=== PATIENT | female | born 1955 | race Caucasian/White ===

== ENCOUNTER → 2020-03-19 10:23 | Outpatient (CLI) | payer OTHER, SELFPAY ==
--- NOTE | ~2020-03-19 | MM_ITS ---
EXAMINATION: MM screening herminio BI w sheri HISTORY: Screening TECHNIQUE: Craniocaudal and mediolateral oblique 3-D tomosynthesis images were obtained and synthetic 2-D images were generated. CAD analysis was submitted and interpreted. COMPARISON: Comparison to multiple prior studies sequentially, with oldest reviewed study dated 09/26. BREAST PARENCHYMAL COMPOSITION: There are scattered areas of fibroglandular density. FINDINGS: There is no evidence of suspicious mass, calcification, or architectural distortion to sugg est malignancy in either breast. There has been no suspicious interval change. IMPRESSION: 1. No mammographic evidence of malignancy. 2. Recommend routine screening mammography in one year. BI-RADS Category 1: Negative Reviewed, dictated and finalized at location A. 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
== END ==
PROVIDERS: PCP Family Medicine; Visit Provider Family Medicine
DX: Z12.31 Encounter for screening mammogram for malignant neoplasm of breast (principal)
CPT/HCPCS: 77063; 77067

== ENCOUNTER 2022-07-28 18:12 | Observation (INO) | payer OTHER, SELFPAY ==
--- NOTE | ~2022-07-28 | XR_ITS ---
XR shoulder RT min 2V 07/28/2022 22:13 Indication: Right shoulder pain after fall Procedure: 4 views right shoulder Comparison: No prior studies for comparison. Findings: There is a curvilinear avulsion fracture of the greater tuberosity of the humerus. Mild ost eoarthritis of the acromioclavicular joint. Osteopenia. Impression: 1: Acute avulsion fracture greater tuberosity of the humerus. Reviewed, dictated and finalized at location A. Impression: 1: Acute avulsion fracture greater tuberosity of the humerus.
--- NOTE | ~2022-07-28 | CT_ITS ---
EXAMINATION: CT brain wo con DATE: 07/28/2022 21:04 INDICATION: Head injury. TECHNIQUE: Computed tomography (CT) of the head was performed without intravenous contrast. The dose- length product was 605.33 mGy-cm. Automated exposure control and iterative reconstruction technique w ere employed. COMPARISON: None FINDINGS: Brain parenchymal volume is normal for age. There is right periorbital soft tissue swelling . There are scattered mild periventricular and subcortical white matter changes, most likely related to small vessel ischemic disease (microangiopathy). No ventriculomegaly or midline shift. Basilar cis terns are patent. There is intracranial atherosclerosis. No acute infarction, hemorrhage, mass or mas s effect. There is mucosal thickening of the maxillary sinuses. Mastoids are pneumatized. No depresse d skull fractures. IMPRESSION: 1. No acute intracranial abnormality. Reviewed, dictated and finalized at location A.
--- NOTE | ~2022-07-28 | CT_ITS ---
EXAMINATION: CT facial & cervical spine wo DATE: 07/28/2022 21:30 INDICATION: Status post fall. Facial and neck pain TECHNIQUE: Computed tomography (CT) of the maxillofacial region and cervical spine was performed with out intravenous contrast. The dose-length product was 245.69 mGy-cm. Automated exposure control and i terative reconstruction technique were employed. COMPARISON: No prior studies for comparison. FINDINGS: MAXILLOFACIAL CT: No acute maxillofacial fracture. There are symmetric degenerative changes of the temporomandibular nagi ints. There is mild right periorbital soft tissue swelling. No orbital blowout fracture. Mild mucosal thickening of the maxillary sinuses. CERVICAL SPINE CT: There is no disc narrowing at C5-6 and C6-7. There is degenerative anterolisthesis at C4-5 and C7-T1. Craniovertebral junction is normal. No evidence for perched facet. No significant paraspinal soft ti ssue abnormality. There is moderate multilevel uncinate and facet hypertrophy. IMPRESSION: 1. No acute abnormality of the facial bones or cervical spine. Reviewed, dictated and finalized at location A.
[2022-07-28 18:30] VITALS: BP 186/89; PULSE 74; RESP 16; TEMP 36.4
--- NOTE | 2022-07-28 18:42 | ECG_ITS ---
Measurements Intervals [place] Rate: 74 P: -12 MN: 138 QRS: 15 QRSD: 89 T: 42 QT: 389 QTc: 434 Interpretive Statements SINUS RHYTHM INCOMPLETE RIGHT BUNDLE BRANCH BLOCK BORDERLINE ECG NO PREVIOUS ECG AVAILABLE FOR COMPARISON Electronically Signed On 07-28-2022 21:22:54 CDT by Augustine Jay D.O.
[2022-07-28 19:02] LABS: Basophils Absolute Auto 0.1 K/mm3 (0.0-0.1); Basophils Percent Auto 0.8 % (0.2-1.2); Eosinophils Absolute Auto 0.1 K/mm3 (0-0.3); Eosinophils Percent Auto 1.1 % (0-4.4); Hematocrit 36.1 % (37.0-47.0); Hemoglobin 11.8 g/dL (12.0-15.0); Immature Granulocyte Absolute 0.07 K/mm3 (0.00-0.031); Immature Granulocyte Percent A 0.6 % (0-0.5); Lymphocytes Absolute Auto 1.08 K/mm3 (0.9-3.2); Lymphocytes Percent Auto 9.6 % (18.3-44.2); Mean Corpuscular HGB Conc 32.7 g/dl (32-36); Mean Corpuscular Hemoglobin 27.8 pg (26-34); Mean Corpuscular Volume 85.1 fl (80-100); Monocytes Absolute Auto 0.6 K/mm3 (0.1-0.6); Monocytes Percent Auto 5.4 % (2.6-8.5); Neutrophils Absolute Auto 9.3 K/mm3 (1.3-6.7); Neutrophils Percent Auto 82.5 % (45.5-73.1); Platelet Count Result 328 k/mm3 (150-375); Red Blood Count 4.24 M/mm3 (4.2-5.4); Red Cell Distribution Width 14.3 % (11.5-14.5); White Blood Count 11.3 K/mm3 (4.5-10.0)
[2022-07-28 19:12] LABS: Alanine Aminotransferase 21 U/L (6-35); Albumin Level 4.6 g/dL (3.5-5.1); Alkaline Phosphatase 100 U/L (38-126); Anion Gap 7 mmol/L (8-16); Aspartate Amino Transferase 31 U/L (14-36); Bilirubin,Total 0.4 mg/dL (0.2-1.3); Blood Urea Nitrogen 12 mg/dL (7-17); Calcium 8.9 mg/dL (8.4-10.2); Carbon Dioxide 27 mmol/L (22-30); Chloride 97 mmol/L (98-107); Estimated CRCL calculation 84 ml/min; Estimated Glomerular Filt Rate > 60; Glucose 146 mg/dL (65-110); Potassium 3.6 mmol/L (3.4-5.0); Sodium 131 mmol/L (137-145)
--- NOTE | 2022-07-28 21:25 | ED.GENADULT ---
HPI - General Adult General Chief complaint: Fall Stated complaint: fall Time Seen by Provider: 07/28/22 20:45 History of Present Illness HPI narrative: This is a 67-year-old female presenting to ED after syncopal event at home. The patient says that she went out to take out the garbage. She does not remember any of the events after that but came into the house with a black eye, swollen lip and right shoulder pain. At this time she is denying chest pain, difficulty breathing, lightheadedness, nausea vomiting, numbness tingling or weakness. patient is not on blood thinners. Related Data Home Medications Medication Instructions Recorded Confirmed cholecalciferol (vitamin D3) 50 50 mcg PO DAILY 08/19/19 12/17/20 mcg (2,000 unit) capsule aspirin-caffeine 500 mg-32.5 mg tablet PO 03/30/22 tablet (Marce [employer]) coenzyme Q10 75 mg capsule (Ultra 75 mg PO DAILY 03/30/22 CoQ10) ferrous sulfate 325 mg (65 mg 325 mg PO .every 3 days 03/30/22 iron) tablet vitamin B complex 1 cap PO DAILY 03/30/22 vitamin E (dl, acetate) 45 mg (100 45 mg PO DAILY 03/30/22 unit) capsule Allergies Allergy/AdvReac Type Severity Reaction Status Date / Time No Known Allergies Allergy Verified 03/30/22 10:18 [facility] Past Medical History Medical History Arthralgia of both knees Essential hypertension Mixed hyperlipidemia Osteopenia Vitamin D deficiency Family History Family History Other Acute myocardial infarction Family history of coronary artery disease Hypertension Social History Social History Smoking status: Never smoker Second hand tobacco smoke exposure: No Alcohol intake: never Substance use: never Substance use type: does not use Lack of Transportation: No Lack of Food: Never True Current Housing: I Have Housing Concerned About Future Housing: No Difficulty Paying Gas/Electric Bills: No Difficulty Paying for Meds: No Currently Unemployed: No Education: Trade/Vocational Certificate Difficulty w/ Childcare or Family Care: No Gender identity (if verbalized by the patient): Female Exam Narrative: APPEARANCE: No apparent distress. 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 head to toe trauma exam ir did not reveal any other injuries. NEURO: Alert. Cranial nerves 2-12 grossly intact. Sensation light touch, motor function cerebellar function intact for 4 extremities. Gait exam was normal. SKIN:: Warm, dry. Normal color PSYCHIATRIC: Normal affect Course Vital Signs Vital signs: Vital Signs Temperature 97.6 F 07/28/22 18:30 Pulse Rate 74 07/28/22 18:30 Respiratory Rate 16 07/28/22 18:30 Blood Pressure 186/89 H 07/28/22 18:30 Temperature 97.6 F 07/28/22 18:30 Pulse Rate 86 07/28/22 22:50 Respiratory Rate 16 07/28/22 18:30 Blood Pressure 155/73 H 07/28/22 22:50 Procedures Laceration Laceration 1: Date: 07/28/22 Site: face Side (If applicable): right Size (cm): 2 Description: linear Depth: simple, single layer Local Anesthetic: lidocaine 1% and with epi Amount of anesthesia used (mL): 3 Pre-repair: wound explored, irrigated, irrigated extensively and deep structures intact ====== Skin Level ====== Skin layer closed with: nylon Size (cm): 6-0 Number of sutures: 3 ====== Subcutaneous Layer ======
[2022-07-28] MEDS: ACETAMINOPHEN 500 MG TABLET 1000 MG PO (21:39)
[2022-07-28] MEDS: TETANUS,DIPHTHERIA,AC PERTUSSIS ADULT (0.5 ML) BOOSTRIX IM (21:41)
[2022-07-28 21:53] LABS: NT Pro B Type Natriuretic Pept 139 pg/mL (19.9-100); Troponin I < 0.012 ng/mL (0.000-0.034)
[2022-07-28 22:49] VITALS: BP 153/74; BP 157/75; PULSE 76; PULSE 88
[2022-07-28 22:50] VITALS: BP 155/73; PULSE 86
[2022-07-28] MEDS: LIDO 1%/EPINEPHRINE 1:100,000 20 ML VIAL 10 ML INFILTRATE (22:56)
[2022-07-29] VITALS (7 sets, daily range): BP systolic 139–166; BP diastolic 60–75; PULSE 64–84; RESP 14–18; TEMP 36.3–37.1; O2SAT 98–100; BMI 26.6
--- NOTE | 2022-07-29 01:06 | ADMGEN ---
This patient, Leona Oneil, was admitted to Medical Room 261-01. Patient/family oriented to hospital policies and general routines including ID bracelet, bed and alarms, visiting hours, pain management, procedures, bathroom and other care routines, personal items, smoking policy, room service/diet, and visiting hours. Information on how to activate the Rapid Response Team has been discussed. Patient/Family are encouraged to report perceived risks to care and to ask questions if they do not understand what they are told or what they should do.
[2022-07-29 03:59] LABS: Troponin I < 0.012 ng/mL (0.000-0.034)
--- NOTE | 2022-07-29 04:53 | PM.IMHP ---
H&P: HPI History of Present Illness Date/Time: 07/29/22 04:53 Chief Complaint: Fall Narrative: 67-year-old female with past medical history of osteopenia and essential hypertension no longer on antihypertensives who presented to the ER after having a fall. The patient reports that she was at her son's house and was taking the trash out. The last thing she remembers is lifting a lid on the trash can. The next thing she knew she was sitting at the kitchen table in her grandson was handing her paper towel to wipe the blood from her lip. She did not remember getting up off the ground or walking into the house. She evidently walked into the house under her own power but does not recall the event. She stated that the ground was wet and she could have slipped and fallen. She denies any known preceding symptoms that is getting given the fact that she cannot recall walking back into the house could be having some amnesia regarding the immediate proceeding and following events. She reports denies having any dizziness on standing prior to the event but since coming to the hospital she has been having some dizziness when she stands up. She relates this to to the fact that she is having pain in her shoulder and now has pain in her face and forehead. She denies any prior history of episodes of syncope, palpitations, chest pain or shortness of breath. She is up on her feet and walks a lot for work. She is usually relatively active. She was on antihypertensives until last year. They were discontinued because she was actually having relative hypotension is symptoms of fatigue. Sensor antihypertensives have been stopped she has not been having any more symptoms. The patient remembers all events since she arrived to the hospital. She denies any cough or cold symptoms. She does have some urinary frequency this evening but she thinks that this is due to her being awake all night when she usually isn't. She denies any dysuria, fevers or chills. She has not noticed any hematuria. The patient does report pain in her right shoulder since the fall that is 7/10 in intensity. It is worse with movement. She reports that the pain is aching in nature. She cannot get comfortable and has not been to sleep. She reports that she takes bear back in body after she has worked all day due to knee pain and hip and low back pain. She does not have a history of taking any narcotics. Review of Systems Review of Systems: 12 systems were reviewed with pertinent positives and negatives per HPI. Except as documented in the HPI, all other systems were reviewed and are negative. [facility] Past Medical History Medical History (Updated 07/29/22 @ 05:39 by Vanna Davis DO) Arthralgia of both knees Essential hypertension Mixed hyperlipidemia Osteopenia Vitamin D deficiency Surgical History Surgical History (Updated 07/29/22 @ 05:01 by Vanna Davis DO) History of 3 sections History of tonsillectomy and adenoidectomy Family History Family History (Updated 07/29/22 @ 05:34 by Vanna Davis DO) Father , Age 57 Acute myocardial infarction Sibling , Age 70 Pancreatic cancer Sibling , Age 70 Heart disease Sibling , Age 70 Autoimmune disorder Mother , Age 86 Heart disease Hypertension Hx of CABG Acute myocardial infarction, Onset Age: 65 Social History Social History (Updated 07/29/22 @ 05:36 by Vanna Davis DO) Social History: The patient reports that she briefly smoked when she was a teenager. She rarely drinks alcohol once or twice a year she may have a glass of wine. She has 3 children who are healthy adult. She has been for 47 years. She works at [employer]. She denies any illicit substance use. Code status: Full code Surrogate decision maker: Smoking status: Never smoker Second hand tobacco smoke exposure: No Alcohol intake: never Substa
[2022-07-29] MEDS: KETOROLAC 30 MG/ML VIAL (*BKC) IV PUSH (08:21)
[2022-07-29] MEDS: CHOLECALCIFEROL 1,000 UNITS TABLET 2000 UNITS PO (08:23)
--- NOTE | 2022-07-29 08:47 | PM.IMPN ---
Progress Note: A&P Assessment and Plan (1) Syncope: Qualifiers: Syncope type: unspecified Qualified Code(s): R55 - Syncope and collapse Code(s): R55 - Syncope and collapse Status: Acute (2) Facial laceration: Qualifiers: Encounter type: initial encounter Qualified Code(s): S01.81XA - Laceration without foreign body of other part of head, initial encounter Code(s): S01.81XA - Laceration without foreign body of other part of head, initial encounter Status: Acute (3) Fracture, humerus, greater tuberosity: Qualifiers: Encounter type: initial encounter Fracture alignment: nondisplaced Fracture type: closed Laterality: right Qualified Code(s): S42.254A - Nondisplaced fracture of greater tuberosity of right humerus, initial encounter for closed fracture Code(s): S42.253A - Displaced fracture of greater tuberosity of unspecified humerus, initial encounter for closed fracture Status: Acute (4) CHI (closed head injury): Qualifiers: Encounter type: initial encounter Qualified Code(s): S09.90XA - Unspecified injury of head, initial encounter Code(s): S09.90XA - Unspecified injury of head, initial encounter Status: Acute Plan It is not clear whether not the patient slipped and fell resulting in her head injury or if the patient had a syncopal event. The patient could of slipped and fell and cannot remember the events due to retrograde amnesia. Patient also could have had is presyncopal or syncopal symptoms being cannot recall due to the same affect. The patient has been admitted for observation in telemetry monitoring. The patient's orthostatic vital signs in the ER were negative. Initial cause of the patient's initial event his chemistry. The patient's cardiac enzymes are negative and she is not having any known cardiac symptoms. Will monitor for recurrence of symptoms. If patient has any evidence of cardiac arrhythmia on telemetry she benefit from an outpatient manager cardiac cath. Will monitor for further evidence of possible concussion and post concussive symptoms. Patient does have a avulsion fracture of her humerus. Orthopedic surgery has been consulted. The patient has been placed in a sling. Patient is reporting pain is a 7/10 in intensity and Toradol and Tylenol have been ordered Patient has been admitted as observation status. Subjective Date/time seen: 07/29/22 08:47 Objective Data Vital Signs Vital Signs: Vital Signs - 24 hr 07/28/22 18:30 07/28/22 22:49 07/28/22 22:49 Temperature 97.6 F Pulse Rate 74 76 88 Respiratory Rate 16 Blood Pressure 186/89 H 153/74 H 157/75 H Pulse Oximetry Oxygen Delivery 07/28/22 22:50 07/29/22 01:26 07/29/22 01:16 Temperature Pulse Rate 86 84 Respiratory Rate 17 Blood Pressure 155/73 H Pulse Oximetry 99 Oxygen Delivery Room Air 07/29/22 01:22 07/29/22 00:00 07/29/22 04:00 Temperature 97.6 F Pulse Rate 81 75 73 Respiratory Rate 18 Blood Pressure 166/75 H Pulse Oximetry 100 Oxygen Delivery 07/29/22 04:43 Temperature 97.4 F L Pulse Rate 64 Respiratory Rate 17 Blood Pressure 139/60 Pulse Oximetry 98 Oxygen Delivery Intake/Output Intake/Output: Intake & Output 07/26/22 07/27/22 07/28/22 07/29/22 23:59 23:59 23:59 23:59 Intake Total 540 Balance 540 Meds/Results Medications: Active Medications Generic Name Dose Route Start Last Admin Trade Name Freq PRN Reason Stop Dose Admin Acetaminophen 650 mg 07/29/22 04:48 Acetaminophen 325 Mg Tablet PO Q4H PRN Mild Pain (1-5) Ketorolac Tromethamine 30 mg 07/29/22 04:48 07/29/22 08:21 Ketorolac 30 Mg/Ml Vial (*Bkc) IV PUSH 30 mg Q6H PRN Administration Pain Rated 6-10 Vitamin D 2,000 units 07/29/22 09:00 07/29/22 08:23 Cholecalciferol 1,000 Units Tablet PO 2,000 units DAILY SANDY Administration Radiology Results:
--- NOTE | 2022-07-29 09:37 | PM.CNOR ---
Assessment and Plan Assessment and plan (1) Fracture, humerus, greater tuberosity: Qualifiers: Encounter type: initial encounter Fracture alignment: nondisplaced Fracture type: closed Laterality: right Qualified Code(s): S42.254A - Nondisplaced fracture of greater tuberosity of right humerus, initial encounter for closed fracture Code(s): S42.253A - Displaced fracture of greater tuberosity of unspecified humerus, initial encounter for closed fracture Status: Acute Assessment and Plan: Radiographs the right shoulder reveal an avulsion fracture of the greater tuberosity of the humerus. The fracture type and injury as well as radiographs discussed with the patient and family. Operative and nonoperative treatment options reviewed. Recommended initiating non operative treatment at this time. Risk of nonunion, malunion or late displacement discussed. Stiffness, pain and possible dysfunction of the joint discussed. Fracture precautions and activity restrictions reviewed. The patient verbalizes understanding.Patient be fit with a sling. Begin PT and OT. Gentle [id number] exercises. Pain control. Ice. Nonweightbearing right upper extremity. Patient can follow-up in the outpatient orthopedic clinic in 6 weeks for re-evaluation. (2) Syncope: Qualifiers: Syncope type: unspecified Qualified Code(s): R55 - Syncope and collapse Code(s): R55 - Syncope and collapse Status: Acute (3) Facial laceration: Qualifiers: Encounter type: initial encounter Qualified Code(s): S01.81XA - Laceration without foreign body of other part of head, initial encounter Code(s): S01.81XA - Laceration without foreign body of other part of head, initial encounter Status: Acute (4) CHI (closed head injury): Qualifiers: Encounter type: initial encounter Qualified Code(s): S09.90XA - Unspecified injury of head, initial encounter Code(s): S09.90XA - Unspecified injury of head, initial encounter Status: Acute Plan Reviewed history, exam, radiographs with attending physician and consult did surgeon, Dr. Diamond. Agrees with current plan as indicated above. No further recommendations at this time. History of Present Illness HPI Consult date: 07/29/22 Chief complaint: syncope Narrative: 67-year-old female admitted after a fall outside while at her son's house. Patient does not remember the extent of the fall or the circumstances surrounding it. She does have right shoulder pain after her fall. Radiographs in the emergency room of the right shoulder reveal an avulsion fracture of the greater tuberosity of the humerus. Orthopedic consult requested by ED physician. Review of Systems Constitutional: Constitutional: Reports no additional constitutional complaints, Denies chills, Denies fatigue, Denies fever(s), Denies headache(s) and Denies weakness ENT: Reports Normal hearing present and Denies headache(s) Respiratory: Respiratory: Denies cough, Denies dyspnea and Denies wheezing Gastrointestinal: Gastrointestinal: Denies constipation, Denies diarrhea, Denies nausea and Denies vomiting Genitourinary: Genitourinary: Denies hematuria, Denies dysuria and Denies urinary urgency Musculoskeletal: Musculoskeletal: Reports as per HPI, Denies numbness and Denies tingling Integumentary/Breasts: Skin/Breast: Reports as per HPI Neurologic: Reports as per HPI, Reports Normal hearing present, Denies headache(s), Denies numbness, Denies tingling and Denies weakness Psychiatric: Psychiatric: Reports no additional psychiatric complaints Endocrine: Endocrine: Reports no additional endocrine complaints and Denies fatigue Hematologic/Lymphatic: Hematologic/Lymphatic: Reports no additional hematologic/lymphatic complaints Allergic/Immunologic: Allergic/Immunologic: Reports no additional allergic/immunologic complaints and Denies wheezing PMFSH Past Medical History Medi
--- NOTE | 2022-07-29 14:31 | PM.DS ---
DS: Admitting Diagnosis Discharge Date 07/29/22 Admitting Diagnosis fall with loss of consciousness. DS: Discharge Diagnosis Discharge Diagnosis (1) Syncope: Qualifiers: Syncope type: unspecified Qualified Code(s): R55 - Syncope and collapse Code(s): R55 - Syncope and collapse Status: Acute (2) Facial laceration: Qualifiers: Encounter type: initial encounter Qualified Code(s): S01.81XA - Laceration without foreign body of other part of head, initial encounter Code(s): S01.81XA - Laceration without foreign body of other part of head, initial encounter Status: Acute (3) Fracture, humerus, greater tuberosity: Qualifiers: Encounter type: initial encounter Fracture alignment: nondisplaced Fracture type: closed Laterality: right Qualified Code(s): S42.254A - Nondisplaced fracture of greater tuberosity of right humerus, initial encounter for closed fracture Code(s): S42.253A - Displaced fracture of greater tuberosity of unspecified humerus, initial encounter for closed fracture Status: Acute (4) CHI (closed head injury): Qualifiers: Encounter type: initial encounter Qualified Code(s): S09.90XA - Unspecified injury of head, initial encounter Code(s): S09.90XA - Unspecified injury of head, initial encounter Status: Acute DS: Summary Hospital Course Reason for hospitalization: fall loss of consciousness Hospital Course: This is a 67 year old female with past medication history of osteopenia and essential hypertension present to the ED post fall. When asking the patient about the fall she cannot remember why she fell or how she fell. Patient did hit her head and lose consciousness. She states that there were no witnesses to her fall. Patient typically ambulates without assistance. Patient did mention that the ground was wet insert that could be reason as well to why she fell. Patient did hit her head and required 2 sutures over her right eye. Patient is typically active. Patient did not have any symptoms of dizziness, lightheadedness, headache, hematuria, dysuria, fevers, chills. CT head no acute intracranial process or bleed. CT of the cervical spine and facial bones no Q abnormality. patient did have some pain in her shoulder and shoulder x-ray revealed fracture of the right humerus. Orthopedics consulted And distal patient recommending patient be put in a sling. Beginning PT and OT with gentle [id number] exercises, nonweightbearing right upper extremity and follow-up in the outpatient orthopedic clinic in 6 weeks for re-evaluation. Since patient did have syncopal event she was admitted and monitored overnight. Patient was observed on telemetry and did not have any acute events overnight or arrhythmias. Patient's cardiac enzymes negative. Consider follow-up with primary care provider for event monitor. patient's labs and imaging do not explain her fall. Patient's fall could have just been mechanical. Advised following up with primary care provider in 1-2 weeks. Suture removal within 5-7 days. This can be done at primary care's office. Time Spent with Patient Time attestation: Total time spent providing and/or coordinating discharge services: Exam Narrative: GENERAL: Comfortable, no acute distress HENMT: moist mucous membranes, laceration and sutures above right eye, right eye bruising and lip swelling and bruising EYES: EOM intact b/l NECK: no lymphadenopathy RESPIRATORY: clear to auscultation CARDIO: RRR GI: soft, nontender, bowel sounds present SKIN: no rashes EXTREMITIES: no edema, redness or tenderness DS: Data Data Completed and Pending Labs on day of discharge: Labs from last 24 hours 07/29/22 07/28/22 07/28/22 02:39 21:26 18:48 WBC RBC Hgb Hct MCV MCH MCHC RDW Plt Count MPV Immature Gran % (Auto) Neut % (Auto) Lymph % (Auto) [place] % (A
== END 2022-07-29 17:12 | disposition home or self-care (01) ==
LOC: ANHED 23:03 → ANH2MED 07-29 10:12
PROVIDERS: Emergency Medicine; Admitting Provider Internal Medicine; Emergency Provider Emergency Medicine; PCP Family Medicine; Visit Provider Internal Medicine
DX: R55 Syncope and collapse (principal); S01.81XA Laceration without foreign body of other part of head, initial encounter; S42.251A Displaced fracture of greater tuberosity of right humerus, initial encounter for closed fracture; S09.90XA Unspecified injury of head, initial encounter; I10 Essential (primary) hypertension; R42 Dizziness and giddiness; E78.5 Hyperlipidemia, unspecified; Z23 Encounter for immunization; M85.80 Other specified disorders of bone density and structure, unspecified site; E55.9 Vitamin D deficiency, unspecified; I45.10 Unspecified right bundle-branch block; Z79.82 Long term (current) use of aspirin; Z79.899 Other long term (current) drug therapy; Z82.49 Family history of ischemic heart disease and other diseases of the circulatory system
CPT/HCPCS: 12011; 36415; 70450; 70486; 72125; 73030; 80053; 83880; 84484; 85025; 90471; 90715; 93005; 96374; 97161; 97165; 97530; 97535; 99285; A4565; A9270; G0378; J1885

== ENCOUNTER 2023-04-05 03:40 | Day surgery (SDC) | payer OTHER, SELFPAY ==
[2023-04-04 15:15] VITALS: BMI 26.1
[2023-04-05] VITALS (33 sets, daily range): BP systolic 115–180; BP diastolic 52–97; PULSE 54–84; RESP 12–20; TEMP 36.1–36.9; O2SAT 94–98; BMI 24.7
--- NOTE | 2023-04-05 08:57 | WPDHPUPDATE1 ---
History and Physical Update Update Date/Time: 04/05/23 08:57 History and Physical has been reviewed, including an updated exam of the patient. There are NO changes in the patient's condition. Risks, benefits, and alternatives have been discussed and questions answered. Patient agrees to proceed with procedure.
--- NOTE | 2023-04-05 08:57 | WPDMODSED ---
Moderate Sedation Note-Pt Data Patient Data Diagnosis: Coronary artery disease Present Complaint: Abnormal coronary CTA Procedure to be performed/Plan: Coronary angiography, left heart cath, +/- PCI Allergies Allergy/AdvReac Type Severity Reaction Status Date / Time No Known Allergies Allergy Verified 04/04/23 15:35 Home Medications Medication Instructions Recorded Confirmed Type cholecalciferol (vitamin D3) 50 50 mcg PO DAILY 08/19/19 04/04/23 History mcg (2,000 unit) capsule (Vitamin D3) coenzyme Q10 75 mg capsule (Ultra 75 mg PO DAILY 03/30/22 04/04/23 History CoQ10) ferrous sulfate 325 mg (65 mg 325 mg PO .every 3 days 03/30/22 04/04/23 History iron) tablet vitamin B complex 1 cap PO DAILY 03/30/22 04/04/23 History vitamin E (dl, acetate) 45 mg (100 45 mg PO DAILY 03/30/22 04/04/23 History unit) capsule aspirin 81 mg tablet,delayed 81 mg PO DAILY 01/19/23 04/04/23 History release (Adult Low Dose Aspirin) glucosamine sulfate 500 mg tablet 500 mg PO DAILY 01/19/23 04/04/23 History (Cidatrine (glucosamine)) pravastatin 10 mg tablet 10 mg PO DAILY #90 tabs 03/06/23 04/04/23 Rx Current Medications: Active Medications Sodium Chloride (Normal Saline Iv) 500 mls @ 100 mls/hr IV CONT .Q5H SANDY Sedation/Anesthesia: No previous sedation/anesthesia problems (including family history). [facility] Past Medical History Medical History Arthralgia of both knees Essential hypertension Mixed hyperlipidemia Osteopenia Vitamin D deficiency Surgical History Surgical History History of 3 sections History of tonsillectomy and adenoidectomy Family History Family History Father , Age 57 Acute myocardial infarction Sibling , Age 70 Pancreatic cancer Sibling , Age 70 Heart disease Sibling , Age 70 Autoimmune disorder Mother , Age 86 Heart disease Hypertension Hx of CABG Acute myocardial infarction, Onset Age: 65 Social History Social History Social History: The patient reports that she briefly smoked when she was a teenager. She rarely drinks alcohol once or twice a year she may have a glass of wine. She has 3 children who are healthy adult. She has been for 47 years. She works at [employer]. She denies any illicit substance use. Code status: Full code Surrogate decision maker: Smoking status: Never smoker Second hand tobacco smoke exposure: No Alcohol intake: former Substance use: never Substance use type: does not use Lack of Transportation: No Lack of Food: Sometimes True Current Housing: I Have Housing Concerned About Future Housing: No Difficulty Paying Gas/Electric Bills: No Difficulty Paying for Meds: No Currently Unemployed: No Education: High School Diploma/GED Difficulty w/ Childcare or Family Care: No Living arrangements: with family Gender identity (if verbalized by the patient): Female Spiritual care concerns: No Mod Sed Physical Exam Physical Exam Pre Procedural Exam: Normal: Appearance, Lungs, Heart Rate, Heart Rhythm, Neuro Exam, Extremities and Skin Hours since solid foods: 12 Hours since liquid intake: 8 Mallampati Classification: class II Internal Medicine - PN: Obj Da Meds/Results Medications: Active Medications Generic Name Dose Route Start Last Admin Trade Name Freq PRN Reason Stop Dose Admin Sodium Chloride 500 mls @ 100 mls/hr 04/05/23 08:30 Normal Saline Iv IV CONT .Q5H [facility] ASA Classification/Sedation ASA Classification/Sedation ASA Class: III Emergent: No Risks: Risks, benefits and alternatives explained and patient/family accepted plan for sedation. Patient re-evaluated immediately normao
[2023-04-05 09:17] LABS: Basophils Absolute Auto 0.1 K/mm3 (0.0-0.1); Basophils Percent Auto 0.9 % (0.2-1.2); Eosinophils Absolute Auto 0.1 K/mm3 (0-0.3); Eosinophils Percent Auto 2.4 % (0-4.4); Hematocrit 37.2 % (37.0-47.0); Hemoglobin 11.7 g/dL (12.0-15.0); Immature Granulocyte Absolute 0.02 K/mm3 (0.00-0.031); Immature Granulocyte Percent A 0.4 % (0-0.5); Lymphocytes Absolute Auto 1.33 K/mm3 (0.9-3.2); Lymphocytes Percent Auto 24.6 % (18.3-44.2); Mean Corpuscular HGB Conc 31.5 g/dl (32-36); Mean Corpuscular Hemoglobin 27.2 pg (26-34); Mean Corpuscular Volume 86.5 fl (80-100); Mean Platelet Volume 9.7 fl (7.4-10.4); Monocytes Absolute Auto 0.5 K/mm3 (0.1-0.6); Monocytes Percent Auto 9.1 % (2.6-8.5); Neutrophils Absolute Auto 3.4 K/mm3 (1.3-6.7); Neutrophils Percent Auto 62.6 % (45.5-73.1); Platelet Count Result 329 k/mm3 (150-375); Red Cell Distribution Width 14.1 % (11.5-14.5); White Blood Count 5.4 K/mm3 (4.5-10.0)
[2023-04-05 09:28] LABS: Anion Gap 13 mmol/L (8-16); Blood Urea Nitrogen 11 mg/dL (7-17); Calcium 9.7 mg/dL (8.4-10.2); Carbon Dioxide 25 mmol/L (22-30); Chloride 103 mmol/L (98-107); Estimated CRCL calculation 73 ml/min; Estimated Glomerular Filt Rate > 60; Glucose 98 mg/dL (65-110); Sodium 141 mmol/L (137-145)
--- NOTE | 2023-04-05 11:05 | WPDCARDPROC ---
Cardiac Cath Procedure Note Date of procedure:: 04/05/23 Performing physician:: CATHETERIZATION LABORATORY REPORT Procedure Date: 04/05/2023 Package Worker: Yanet Mcintyre M.D., [facility]? Referring Physician: Augustine Jay M.D. ? Anesthesia: Versed and Fentanyl were ordered and given in my presence at 10:07, procedure ended at 11:00. Supervision of nurse monitored moderate sedation with Versed and Fentanyl was provided for 53 minutes. Total of Versed 3mg and Fentanyl 100mcg were administered by the Youth Care Specialist RN Ban Cardoso. Pre-op Diagnosis: Coronary artery disease Post-op Diagnosis: Multivessel coronary artery disease Procedure(s): 1. Moderate sedation 2. Ultrasound-guided access of the right radial artery 3. Ultrasound-guided access of the right common femoral artery 4. Coronary angiography Access Site: Right radial artery Brief History and Clinical Indications: Patient is a 67 year old female with hyperlipidemia, family history of mother with CABG at age 66, father and brother from [place] who is referred for [facility] for chest pain in the setting of abnormal coronary CTA. All risks, benefits and alternatives to left heart catheterization with or without percutaneous coronary intervention was discussed at length with the patient. Risk of complications including but not limited to bleeding, infection, arrhythmia, stroke, worsening kidney function, blood loss, groin hematoma, limb loss, emergency coronary artery bypass grafting, and even were discussed with the patient and all questions were answered. The patient understood and wished to proceed. Time out called, patient name, date of , medical record number, allergies, procedure performed, identify Package Worker, patient and staff member concurred with accurate data, procedure carried on. Findings: LEFT HEART CATHETERIZATION FINDINGS: 1. Left main: Large caliber vessel. The left main coronary artery is widely patent without any significant obstructive disease. 2. Left anterior descending: The ostium of the LAD has an 80% stenosis, followed by mild-moderate disease in the proximal portion. Remainder of the LAD has luminal irregularities. The first diagonal branch is a very small caliber branch and is diffusely diseased. Second diagonal branch is a very small caliber branch. 3. Left circumflex: Large caliber vessel. The left circumflex vessel is at least a co-dominant vessel. The proximal LCX has mild disease of about 30-40%. The mid portion has luminal irregularities. The mid-distal portion has a moderate stenosis of 50-70% at the level of the bifurcation of a LPL branch and LPDA. Distal to this lesion, there is a moderate stenosis in the LPDA followed by a hazy 80-90% stenosis. The first OM is a medium-large caliber branch with a 40-50% stenosis in its proximal portion. The second OM branch is a small caliber branch with a moderate stenosis in its mid portion. 4. Right coronary artery: The RCA is a small caliber vessel. The mid portion has a 99% stenosis followed by RADIATION THERAPY TECHNOLOGIST. Suspect that the RCA may be a co-dominant vessel as there are well-formed [id number] collaterals filling what appears to be an RPDA and RPLV. Description of Procedure: Informed consent signed and placed in the chart. Patient transferred to label stamper room. Prepped and draped in usual sterile fashion. 2% lidocaine injected subcutaneously in right wrist area. 22-gauge venipuncture catheter used to access the right radial artery under ultrasound guidance. 6-FR slender sheath placed in right radial artery. Nitroglycerine and Verapamil were given intraarterial through the sheath. Versacore wire advanced under fluoroscopy 5F Tig 4 diagnostic catheter engaged Right Coronary Artery. Multiple orthogonal angiogram obtained and reviewed Difficulty engaging the LM via right radial access due to the upward takeoff of the left main. Unable to engage with 5F Tig 4, 5F FL 3.5, 5F FL 4, 5F AL1. Attempted to eng
[2023-04-05 13:03] LABS: Partial Thromboplastin Time 198.6 SECONDS (22.3-36.8)
[2023-04-05 14:03] LABS: Partial Thromboplastin Time 67.3 SECONDS (22.3-36.8)
[2023-04-05 14:57] LABS: Partial Thromboplastin Time 38.7 SECONDS (22.3-36.8)
[2023-04-05 15:57] LABS: Activated Clotting Time 185 SEC (74-137)
[2023-04-05 15:57] LABS: Activated Clotting Time 161 SEC (74-137)
[2023-04-05 15:57] LABS: Activated Clotting Time 161 SEC (74-137)
--- NOTE | 2023-04-05 17:35 | PC.NURSE ---
Pt received from label printing machinist. Radial and groin sites checked. No issues noted. VS stable
== END 2023-04-05 21:16 | disposition home or self-care (01) ==
PROVIDERS: PCP Family Medicine; Visit Provider Internal Medicine
PROC: (CPT 93454; principal; 2023-04-05 10:00)
PROC: (CPT 36140; 2023-04-05 10:00)
DX: I25.10 Atherosclerotic heart disease of native coronary artery without angina pectoris (principal); R07.9 Chest pain, unspecified; E78.5 Hyperlipidemia, unspecified
CPT/HCPCS: 36140; 36415; 80048; 85025; 85730; 93454; A9270; C1769; C1887; C1894; J0461; J1644; J2250; J2305; J3010; J7040

== ENCOUNTER → 2023-07-19 11:28 | Outpatient (CLI) | payer MEDICARE, SELFPAY ==
--- NOTE | ~2023-07-19 | MM_ITS ---
EXAMINATION: MM screening herminio BI w sheri HISTORY: Screening mammogram TECHNIQUE: Craniocaudal and mediolateral oblique 3-D tomosynthesis images were obtained and synthetic 2-D images were generated. CAD analysis was submitted and interpreted. COMPARISON: 03/19/2020, 05/31/2018 bilateral screening mammogram examinations BREAST PARENCHYMAL COMPOSITION: The breasts are heterogeneously dense, which may obscure small masses . FINDINGS: There is no evidence of suspicious mass, calcification, or architectural distortion to sugg est malignancy in either breast. There has been no suspicious interval change. IMPRESSION: 1. No mammographic evidence of malignancy. 2. Recommend routine screening mammography in one year. BI-RADS Category 1: Negative Reviewed, dictated and finalized at location A. ANCE LEARNING ADMINISTRATOR
== END ==
PROVIDERS: PCP Family Medicine; Visit Provider Family Medicine
DX: Z12.31 Encounter for screening mammogram for malignant neoplasm of breast (principal)
CPT/HCPCS: 77063; 77067

== ENCOUNTER 2023-09-14 08:30 | Outpatient (RCR) | payer MEDICARE, SELFPAY | END 2023-09-14 11:26 | disposition home or self-care (01) | LOC: ANHCPREHAB 08:30 | PROVIDERS: PCP Family Medicine; Visit Provider Internal Medicine Cardiovascular Disease | DX: Z95.5 Presence of coronary angioplasty implant and graft (principal) | CPT/HCPCS: 93798 ==

== ENCOUNTER 2024-06-24 09:04 | Emergency (ER) | payer MEDICARE, SELFPAY ==
[2024-06-24] VITALS (25 sets, daily range): BP systolic 139–187; BP diastolic 66–127; PULSE 53–79; RESP 12–19; TEMP 36.9; O2SAT 97–100
--- NOTE | ~2024-06-24 | XR_ITS ---
EXAMINATION: XR chest 2V DATE: 06/24/2024 09:58 INDICATION: Chest pain. TECHNIQUE: Frontal and lateral views of the chest were obtained on 3 radiographs. COMPARISON: None. FINDINGS: There is no pneumonia, pleural effusion, or pneumothorax. The heart size is normal. IMPRESSION: 1. No acute cardiopulmonary disease. Reviewed, dictated and finalized at location A. Y DIRECTOR
--- NOTE | 2024-06-24 09:06 | ECG_ITS ---
Test Date: 2024-06-24 09:13:46 Measurements Intervals [place] Rate: 78 P: 59 AK: 125 QRS: -12 QRSD: 83 T: 50 QT: 360 QTc: 412 Interpretive Statements SINUS RHYTHM NORMAL ECG No previous ECG available for comparison Electronically Signed On 06-24-2024 09:57:44 SEDIMENTATIONIST by Augustine Jay D.O.
--- OUTSIDE RECORDS SUMMARY | 2024-06-24 09:28 | XMS_ITS | Referral Summary ---
Author Organization [facility] [place] [address] [facility] [address] Address [address] [place] [address] Care Team Providers Care Job Developer For Deaf Adults Name Role Phone Marry Keith MD Primary Care Provider [phone] Augustine Jay DO Unavailable [phone] Singh Monzon MD Unavailable [phone] Allergies No known active allergies Medications metoprolol XL (TOPROL-XL) 25 mg extended release tablet Take 1 tablet (25 mg total) by mouth daily 3 Active vitamin D3-vitamin K2 137.5-200 mcg tablet Take 50 mcg by mouth daily Active vitamin B complex capsule Take 1 capsule by mouth daily Active coenzyme Q10 100 mg capsule Take 1 capsule (100 mg total) by mouth daily Active vitamin E 400 unit capsule Take 1 capsule (400 Units total) by mouth daily Active iron bisgly,ps-FA-B-C #12-succ 65 mg-65 mg -1,000 mcg (24) tablet Take 65 mg by mouth every 3 (three) days Active glucosamine HCl 1,500 mg tablet Take 1,500 mg by mouth daily Active diphenhydrAMINE 25 mg capsule Take 1 tablet/capsule (25 mg total) by mouth every 6 (six) hours as needed for itching Active ticagrelor (BRILINTA) 90 mg tablet Take 1 tablet (90 mg total) by mouth 2 (two) times a day 60 tablet 11 3 Active rosuvastatin (CRESTOR) 40 mg tablet Take 1 tablet (40 mg total) by mouth daily 30 tablet 11 3 Active apixaban (ELIQUIS) 5 mg tabletIndication s:Venous Thrombosis,atria l fibrillation Take 1 tablet (5 mg total) by mouth 2 (two) times a day 60 tablet 3 3 Active famotidine (PEPCID) 20 mg tabletIndication s:Prevention of Stress Ulcer Take 1 tablet (20 mg total) by mouth 2 (two) times a day 60 tablet 11 3 Active aspirin 81 mg enteric coated tablet Take 1 tablet (81 mg total) by mouth daily Take daily for 1 week then discontinue 5 tablet 3 Active Active Problems Problem Noted Date Diagnosed Date S/P drug eluting coronary stent placement 2022 Coronary artery disease (CAD) excluded 3 CAD (coronary artery disease) 05/01/2023 Coronary artery disease invo lving marshall coronary artery of marshall heart with unstable angina pectoris 04/26/2023 Immunizations Name Administration Dates Next Due Influenza, Quadrivalent, Hig h Dose, Preservative Free, Intrr 05/03/2023 Social History Tobacco Use Types Packs/Day Years Used Date Smoking Tobacco: Never Tobacco Cessation:Counseling Given: Not Answered AUDIT-C Answer Date Recorded Frequency of Alcohol Consumption Not on file 04/26/2023 Q2: How many drinks containi ng alcohol do you have on a typical day when you are drinking? Patient does not drink Frequency of Binge Drinking Not on file 04/14 Personal Safety Answer Date Recorded Have you ever been in or are you currently in a harmful physical or emotional relationship or is someone making you feel afraid or unsafe? Denies 05/01/2023 Comments Unknown Sex and Gender Information Value Date Recorded Sex Assigned at Not on file Legal Sex Female 8:30 AM CDT Gender Identity Not on file Sexual Orientation Not on file Last Filed Vital Signs Vital Sign Reading Time Taken Comments Blood Pressure 116/53 05/03/2023 12:49 PM TRANSLATOR AND INTERPRETER Pulse 74 05/03/2023 12:49 PM TRANSLATOR AND INTERPRETER Temperature 36.5 C (97.7 F) 05/03/2023 12:49 PM TRANSLATOR AND INTERPRETER Respiratory Rate 15 05/03/2023 12:49 PM TRANSLATOR AND INTERPRETER Oxygen Saturation 99% 05/03/2023 12:49 PM TRANSLATOR AND INTERPRETER Inhaled Oxygen Concentration - - Weight 63.1 kg (139 lb 1.8 oz) 05/02/2023 6:30 P M TRANSLATOR AND INTERPRETER Height 160 cm (5' 3 ) 05/02/2023 6:30 PM TRANSLATOR AND INTERPRETER Body Mass Index 24.64 05/02/2023 6:30 PM TRANSLATOR AND INTERPRETER Plan of Treatment Not on file Medical Devices Implanted Type Area Order Manager Device Identifier Shelf Expiration Date Model / Serial / Lot [employer] Alin Stent Coronary Drug Eluting Rapid Exchange Synergy Megatron 3.08l59hz [place] Chromium [id number] - S0 - [id number] Implanted:Qty : 1 on 05/01/2023 by Shawn Culp MD at [facility] Stent Left: Anterior Descending Cornary Artery [employer] Alin 11/13/2024 [id number] / 0 / [id number] [employer] Stent Drug Eluting S Megatron Us Mr [id number] - S0 - [id number] Implanted:Qty : 1 on 05/01/2023 by Shawn Culp MD at [facility] Stent Left: Circumflex Coronary Artery [employer]in 11/21/2024 [id number] / 0 / [id number] [employer] Alin Angio-Seal Vip 6fr Closere Device [id number] - S0 - [id number] Implanted:Qty : 1 on 05/01/2023 by Shawn Culp MD at [facility] Vascular Closure Device Right: Femoral [employer] Alin 10/20/2023 [id number] / 0 / [id number] 40 Insurance [facility] CHOICE PLUS [facility] CHOICE PLUS MEDICARE [facility] CHOICE PLUS Advance Directives For more information, please contact: [phone] * Full Code (Latest Code Status on File) Date Activated Date Inactivated Comments 05/01/2023 12:35 PM 05/03/2023 8:15 PM Care Teams Job Developer For Deaf Adults Relationship Specialty Start Date End Date Marry Keith MD PCP - General Family Medicine 08/05/22 Augustine Jay DO [address] [address] Referring Physician Internal Medicine 04/12/23 Singh Monzon MD [address] [address] Consulting Physician Cardiothoracic Surgery 04/12/23
--- OUTSIDE RECORDS SUMMARY | 2024-06-24 09:28 | XMS_ITS | Clinical Summary ---
Author Organization [facility] [place] [address] [facility] [address] Address [address] [place] [address] Care Team Providers Care Airplane Pilot Helper Name Role Phone Marry Keith MD Primary Care Provider [phone] Pierre Augustineshadi Canseco DO Unavailable [phone] Singh Monzon MD Unavailable Allergies No known active allergies Medications metoprolol [...] disease) 05/01/2023 Coronary artery disease invo lving [place] coronary artery of [place] heart with unstable angina pectoris 04/26/2023 Immunizations Name Administration Dates Next Due Influenza, Quadrivalent, Hig h Dose, Preservative Free, Intrr 05/03/2023 Surgical History Surgery Date Site/Laterality Comments CARDIAC CATHETERIZATION 04/05/2023 TONSILLECTOMY SECTION Medical History Medical History Date Comments Hyperlipidemia Hypertension Coronary artery disease Family History Medical History Relation Name Comments Heart attack Brother Heart disease Brother Sudden Cardiac Brother Heart attack Father Heart disease Father Sudden Cardiac Father Coronary artery disease Mother Heart disease Mother Relation Name Status Comments Brother Father Mother Social History Tobacco Use Types Packs/Day Years [...] on file Sexual Orientation Not on file Obstetrics History Last Filed Vital Signs Vital Sign Reading Time Taken Comments Blood Pressure 116/53 05/03/2023 12:49 PM CLOTHING WORKER Pulse 74 05/03/2023 12:49 PM CLOTHING WORKER Temperature 36.5 C (97.7 F) 05/03/2023 12:49 PM CLOTHING WORKER Respiratory Rate 15 05/03/2023 12:49 PM CLOTHING WORKER Oxygen Saturation 99% 05/03/2023 12:49 PM CLOTHING WORKER Inhaled Oxygen Concentration - - Weight 63.1 kg (139 lb 1.8 oz) 05/02/2023 6:30 P M CLOTHING WORKER Height 160 cm (5' 3 ) 05/02/2023 6:30 PM CLOTHING WORKER Body Mass Index 24.64 05/02/2023 6:30 PM CLOTHING WORKER Plan of Treatment Health Maintenance Due Date Last Done Comments Breast Cancer Screening-Mammogram 1953 Colon Cancer Screening-Colonoscopy 1955 Depression Screening 1953 Hepatitis C Screening 1955 Osteoporosis Screening-Bone Density Scan 1953 Hepatitis B Screening 1971 Well Visit 65+ 2018 Pneumococcal vaccine 65+ (2 of 2 - PPSV23 or PCV20) 10/30/2020 10/31/2019 Covid-19 Vaccine (6 - 2023-2 5 season) 2024 02/08/2022, 09/16/2021, 03/26/2021, Additional history exists Influenza Vaccine (#1) 2024 , 02/08/2022, 03/24/2021, Additional history exists Fall Risk Assessment 05/03/2024 05/03/2023 DTaP/Tdap/Td Vaccine (2 - Td or Tdap) 07/28/2032 07/28/2022 Zoster Vaccine Completed 06/01/2020, 03/30/2020 Medical Devices Implanted Type Area Termite Helper Device Identifier Shelf Expiration Date Model / Serial / Lot [employer] Alin Stent Coronary Drug Eluting Rapid Exchange Synergy Megatron 3.07m97os [place] Chromium [id number] - S0 - [id number] Implanted:Qty : 1 on 05/01/2023 by Shawn Culp MD at [facility] Stent Left: Anterior Descending Cornary Artery [employer] Alin 11/13/2024 [id number] / 0 / [id number] [employer] Alin Stent Drug Eluting S Dayday Us Mr [id number] - S0 - [id number] Implanted:Qty : 1 on 05/01/2023 by Shawn Culp MD at [facility] Stent Left: Circumflex Coronary Artery [employer] Alin 11/21/2024 [id number] / 0 / [id number] [employer] Alin Angio-Seal Vip 6fr Closere Device [id number] - S0 - [id number] Implanted:Qty : 1 on 05/01/2023 by Shawn Culp MD at [facility] Vascular Closure Device Right: Femoral [employer] Alin 10/20/2023 [id number] / 0 / [id number] Insurance [facility]US [facility] [place] [address] [facility] CHOICE PLUS Advance Directives For more information, please contact: [phone] * Full Code (Latest Code Status on File) Date Activated Date Inactivated Comments 05/01/2023 12:35 PM 05/03/2023 8:15 PM Care Teams Airplane Pilot Helper Relationship Specialty Start Date End Date Marry Keith MD PCP - General Family Medicine 08/05/22 Augustine Jay DO [address] [address] Referring Physician Internal Medicine 04/12/23 Singh Monzon MD [address] [address] Consulting Physician Cardiothoracic Surgery 04/12/23
--- OUTSIDE RECORDS SUMMARY | 2024-06-24 09:28 | XMS_ITS | Clinical Summary ---
Author Organization [facility] Address [address] [place] [address] Care Team Providers Care Single Stroke Preformer Name Role Phone Marry Keith MD Primary Care Provider [phone] Source Comments [facility],non-[facility] community hospital Affiliates and Associated Physician Practices is amultiple site organization consisting of ambulatory clinics and hospital sitesin [place], [place], [place] and [place]. This disclosure is being madepursuant to the Care Everywhere program and may not contain all information available regarding this patient. Last updated 18.[facility] Allergies No known active allergies Medications * Be aware that medications may not be up to date on this document. Alwaysverify current medications with the patient. Medication Sig Dispensed Refills Start Date End Date Status METOPROLOL SUCCINATE PO Active albuterol HFA (PROVENTIL;VENTOLIN;P ROAIR) 108 (90 Base) MCG/ACT inhaler Inhale 2 puffs by mouth every 4 hours as needed 1 Inhaler 04/23/2019 Active Active Problems No known active problems Immunizations Name Administration Dates Next Due INFLUENZA VACCINE, HIGH-DOSE , QUADR. (FLUZONE HIGH-DOSE QUADRIVALENT; 65Y+), 0.7 ML (HD-IIV4) 03/24/2021 INFLUENZA VACCINE, QUADR. (F LUZONE; FLULAVAL; FLUARIX; AFLURIA QUADRIVALENT; 6MO+), 0.5 ML (IIV4) 02/28/2019,02/27/2017 iNFLUENZA VACCINE, RECOM-BENJAMIN, QUADR. (FLUBLOCK QUADRIVALENT; 18Y+) (RIV4) 02/14/2018 Social History Tobacco Use Types Packs/Day Years Used Date Smoking Tobacco: Former Smokeless Tobacco: Never Sex and Gender Information Value Date Recorded Sex Assigned at Not on file Gender Identity Not on file Sexual Orientation Not on file Last Filed Vital Signs Vital Sign Reading Time Taken Comments Blood Pressure 136/80 04/23/2019 5:02 PM EMAIL ADMINISTRATOR Pulse 86 04/23/2019 5:02 PM EMAIL ADMINISTRATOR Temperature 36.9 C (98.4 F) 04/23/2019 5:02 PM EMAIL ADMINISTRATOR Respiratory Rate - - Oxygen Saturation 99% 04/23/2019 5:02 PM EMAIL ADMINISTRATOR Inhaled Oxygen Concentration - - Weight 70.3 kg (155 lb) 04/23/2019 5:02 PM EMAIL ADMINISTRATOR Height 162.6 cm (5' 4 ) 04/23/2019 5:02 PM EMAIL ADMINISTRATOR Body Mass Index 26.61 04/23/2019 5:02 PM EMAIL ADMINISTRATOR Plan of Treatment Health Maintenance Due Date Last Done Comments BONE DENSITY TESTING 1955 COLOGUARD (AGES 45-75) - COLON CA SCREENING 1953 COLON MONITORING 1953 COLONOSCOPY - COLON CA SCREENING 1953 CT COLONOGRAPHY - COLON CA SCREENING 1953 Colorectal Cancer Screening 1953 FIT - COLON CA SCREENING 1953 FLEX SIG - COLON CA SCREENING 1953 LIPID TESTING 1953 MAMMOGRAM 1953 HEPATITIS C SCREENING 06/04/1971 DTAP/TDAP/TD VACCINES (1 - Tdap) 1972 PNEUMOCOCCAL VACCINE 50+ (1 of 1 - PCV) 2003 ZOSTER VACCINE (1 of 2) 2003 COVID-19 VACCINE (3 - season) 2024 07/30/2020, 07/09/2020 INFLUENZA VACCINE (#1) 2024 , 03/30/2020, 02/28/2019, Additional history exists DEPRESSION SCREENING 05/15/2024 Respiratory Syncytial Virus (RSV) Vaccine Pt: or over 60 yrs (1 - 1-dose 75+ series) 2028 HEPATITIS B VACCINE Aged Out No longe r eligible based on patient's age to complete this topic HIB VACCINE Aged Out No longer eligi ble based on patient's age to complete this topic HPV VACCINE Aged Out No longer eligi ble based on patient's age to complete this topic MENINGOCOCCAL (Group B) VACCINE Aged Out No longer eligible based on patient's age to complete this topic MENINGOCOCCAL VACCINE Aged Out No diogenes allyson eligible based on patient's age to complete this topic Care Teams Single Stroke Preformer Relationship Specialty Start Date End Date Marry Keith MD [address] [place], [place] [id number] PCP - General Family Medicine 02/27/17
--- OUTSIDE RECORDS SUMMARY | 2024-06-24 09:28 | XMS_ITS | Referral Summary ---
Author Organization [facility] [employer] Address [address] [place] [address] Care Team Providers Care Contracts Officer Name Role Phone Marry Keith MD Primary Care Provider [phone] [facility] [employer],non-[facility] Affiliates and Associated Physician Practices is amultiple site organization consisting of ambulatory clinics and hospital sitesin [place], [place], [place] and [place]. This disclosure is being madepursuant to the Care Everywhere program and may not contain all information available regarding this patient. Last updated 18.[facility] [employer] Allergies No known active allergies Medications * [...] Comments Blood Pressure 136/80 04/23/2019 5:02 PM SEWING MACHINE OPERATOR ZIPPER Pulse 86 04/23/2019 5:02 PM SEWING MACHINE OPERATOR ZIPPER Temperature 36.9 C (98.4 F) 04/23/2019 5:02 PM SEWING MACHINE OPERATOR ZIPPER Respiratory Rate - - Oxygen Saturation 99% 04/23/2019 5:02 PM SEWING MACHINE OPERATOR ZIPPER Inhaled Oxygen Concentration - - Weight 70.3 kg (155 lb) 04/23/2019 5:02 PM SEWING MACHINE OPERATOR ZIPPER Height 162.6 cm (5' 4 ) 04/23/2019 5:02 PM SEWING MACHINE OPERATOR ZIPPER Body Mass Index 26.61 04/23/2019 5:02 PM SEWING MACHINE OPERATOR ZIPPER Plan of Treatment Not on file Care Teams Contracts Officer Relationship Specialty Start Date End Date Marry Keith MD [address] [place] [address] PCP - General Family Medicine 02/27/17
--- OUTSIDE RECORDS SUMMARY | 2024-06-24 09:28 | XMS_ITS | Patient Health Summary ---
Author Organization [facility] [employer] Address [address] [place] [address] Care Team Providers Care Doll Wig Maker Name Role Phone Marry Keith MD Primary Care Provider [phone] Note from [facility],non-owned Affiliates and Associated Physician Practices is amultiple site organization consisting of ambulatory clinics and hospital sitesin [place], [place], [place] and [place]. This disclosure is being madepursuant to the Care Everywhere program and may not contain all information available regarding this patient. Last updated 18.[facility] Allergies No known active allergies Medications * Be aware that medications may not be up to date on this document. Alwaysverify current medications with the patient. * METOPROLOL SUCCINATE PO * albuterol HFA (PROVENTIL;VENTOLIN;PROAIR) 108 (90 Base) MCG/ACT inhaler (Started 04/23/2019) Inhale 2 puffs by mouth every 4 hours as needed Active Problems No known active problems Immunizations * INFLUENZA VACCINE, HIGH-DOSE, QUADR. (FLUZONE HIGH-DOSE QUADRIVALENT; 65Y+), 0.7 ML (HD-IIV4)(Given 03/24/2021) * INFLUENZA VACCINE, QUADR. (FLUZONE; FLULAVAL; FLUARIX; AFLURIA QUADRIVALENT; 6MO+), 0.5 ML (IIV4)(Given 02/28/2019, 02/27/2017) * iNFLUENZA VACCINE, RECOM-BENJAMIN, QUADR. (FLUBLOCK QUADRIVALENT; 18Y+) (RIV4)(Given 02/14/2018) Social History Tobacco Use Types Packs/Day Years Used Date Smoking Tobacco: Former Smokeless Tobacco: Never Sex and Gender Information Value Date Recorded Sex Assigned at Not on file Gender Identity Not on file Sexual Orientation Not on file Last Filed Vital Signs Vital Sign Reading Time Taken Comments Blood Pressure 136/80 04/23/2019 5:02 PM NURSING TEACHER Pulse 86 04/23/2019 5:02 PM NURSING TEACHER Temperature 36.9 C (98.4 F) 04/23/2019 5:02 PM NURSING TEACHER Respiratory Rate - - Oxygen Saturation 99% 04/23/2019 5:02 PM NURSING TEACHER Inhaled Oxygen Concentration - - Weight 70.3 kg (155 lb) 04/23/2019 5:02 PM NURSING TEACHER Height 162.6 cm (5' 4 ) 04/23/2019 5:02 PM NURSING TEACHER Body Mass Index 26.61 04/23/2019 5:02 PM NURSING TEACHER Procedures * STREP A SCREEN - POINT OF CARE (AMB) STL(Performed 04/23/2019) Performed for Acute URI * INFLUENZA A+B - POINT OF CARE (AMB)(Performed 04/23/2019) Performed for Acute URI Results * STREP A SCREEN - POINT OF CARE (AMB) STL (04/23/2019) Strep A Rapid POCT Negative Negative Strep A Internal Control Present Lot # [id number] Expiration Date 08/12/2020 Throat ENTIRE THROAT (SURFACE REGION OF NECK) / Unknown 04/23/2019 Valeria Yu APRN-LIGHTING ADVISER LAB - POINT OF CARE ORDERABLES * INFLUENZA A+B - POINT OF CARE (AMB) (04/23/2019) Influenza A Antigen Rapid Negative Negative Influenza B Antigen Rapid Negative Negative Influenza Internal Control present NEGATIVE - POSITIVE Influenza Lot Number [id number] Influenza Expiration Date 08/22/2020 Other NASOPHARYNGEAL SWAB / Unknown 04/23/2019 Valeria Yu APRN-LIGHTING ADVISER LAB - POINT OF CARE ORDERABLES Care Teams Doll Wig Maker Relationship Specialty Start Date End Date Marry Keith MD [address] [place] [address] PCP - General Family Medicine 02/27/17
[2024-06-24 09:29] LABS: Basophils Absolute Auto 0.1 K/mm3 (0.0-0.1); Basophils Percent Auto 1.6 % (0.2-1.2); Eosinophils Absolute Auto 0.2 K/mm3 (0-0.3); Eosinophils Percent Auto 3.5 % (0-4.4); Hematocrit 35.6 % (37.0-47.0); Hemoglobin 11.5 g/dL (12.0-15.0); Immature Granulocyte Absolute 0.01 K/mm3 (0.00-0.031); Immature Granulocyte Percent A 0.2 % (0-0.5); Lymphocytes Absolute Auto 1.67 K/mm3 (0.9-3.2); Lymphocytes Percent Auto 26.8 % (18.3-44.2); Mean Corpuscular HGB Conc 32.3 g/dl (32-36); Mean Corpuscular Hemoglobin 27.6 pg (26-34); Mean Corpuscular Volume 85.6 fl (80-100); Mean Platelet Volume 9.9 fl (7.4-10.4); Monocytes Absolute Auto 0.6 K/mm3 (0.1-0.6); Monocytes Percent Auto 10.1 % (2.6-8.5); Neutrophils Absolute Auto 3.6 K/mm3 (1.3-6.7); Neutrophils Percent Auto 57.8 % (45.5-73.1); Platelet Count Result 311 k/mm3 (150-375); Red Blood Count 4.16 M/mm3 (4.2-5.4); Red Cell Distribution Width 14.6 % (11.5-14.5); White Blood Count 6.2 K/mm3 (4.5-10.0)
[2024-06-24 09:42] LABS: Prothrombin Time 13.1 Seconds (11.1-14.7)
[2024-06-24 09:43] LABS: Partial Thromboplastin Time 30.8 Seconds (22.3-36.8)
[2024-06-24 09:47] LABS: Alanine Aminotransferase 22 U/L (6-35); Albumin Level 4.3 g/dL (3.5-5.1); Alkaline Phosphatase 97 U/L (38-126); Anion Gap 12 mmol/L (4-12); Aspartate Amino Transferase 31 U/L (14-36); Bilirubin,Total 0.5 mg/dL (0.2-1.3); Blood Urea Nitrogen 15 mg/dL (7-17); Calcium 9.3 mg/dL (8.4-10.2); Carbon Dioxide 22 mmol/L (22-30); Chloride 104 mmol/L (98-107); Estimated CRCL calculation 59 ml/min; Estimated Glomerular Filt Rate > 60; Glucose 89 mg/dL (65-110); Lipase 81 U/L (23-300); Potassium 4.3 mmol/L (3.4-5.0); Sodium 138 mmol/L (137-145)
[2024-06-24 09:59] LABS: Troponin I < 0.012 ng/mL (0.000-0.034)
[2024-06-24] MEDS: ASPIRIN 81 MG CHEWABLE TABLET 324 MG PO (10:32)
--- NOTE | 2024-06-24 10:41 | ED_ITS ---
HPI - Chest Pain General Chief Complaint: Chest Pain Stated Complaint: chest pain Time Seen by Provider: 06/24/24 10:26 Source: patient Mode of arrival: ambulatory Limitations: no limitations History of Present Illness HPI narrative: this is a 69-year-old female that presents to the emergency department for an episode of chest pain today. Reports she had just finished to work out. She started to develop base of sternal chest pressure. This has now resolved. She did take aspirin prior to arrival. Reports history of coronary artery disease. Her senior electrical designer is Dr. Jay. Denies shortness of breath. Related Data Home Medications ?Medication ?Instructions ?Recorded ?Confirmed ?Last Taken ?Type cholecalciferol (vitamin D3) 50 50 mcg PO DAILY 08/19/19 06/24/24 04/04/23 History mcg (2,000 unit) capsule (Vitamin D3) coenzyme Q10 75 mg capsule (Ultra 75 mg PO DAILY 03/30/22 06/24/24 04/04/23 History CoQ10) ferrous sulfate 325 mg (65 mg 325 mg PO .every 3 days 03/30/22 06/24/24 04/04/23 History iron) tablet vitamin B complex 1 cap PO DAILY 03/30/22 06/24/24 04/04/23 History vitamin E (dl, acetate) 45 mg (100 45 mg PO DAILY 03/30/22 06/24/24 04/04/23 History unit) capsule glucosamine sulfate 500 mg tablet 500 mg PO DAILY 01/19/23 06/24/24 04/04/23 History (Cidatrine (glucosamine)) aspirin 81 mg tablet,delayed 81 mg PO DAILY 12/13/23 06/24/24 06/24/24 History release Allergies Allergy/AdvReac Type Severity Reaction Status Date / Time No Known Allergies Allergy Verified 06/24/24 10:28 Review of Systems 2 Review of Systems: CONSTITUTIONAL: Denies fever CARDIOVASCULAR: Reports chest pain RESPIRATORY: Denies dyspnea. All systems reviewed & are unremarkable except as noted in HPI and below PMFSH Past Medical History Medical History Arthralgia of both knees Essential hypertension Mixed hyperlipidemia Osteopenia Vitamin D deficiency Surgical History Surgical History History of 3 sections History of tonsillectomy and adenoidectomy Family History Family History Father , Age 57 Acute myocardial infarction Sibling , Age 70 Pancreatic cancer Sibling , Age 70 Heart disease Sibling , Age 70 Autoimmune disorder Mother , Age 86 Heart disease Hypertension Hx of CABG Acute myocardial infarction, Onset Age: 65 Social History Social History Social History: The patient reports that she briefly smoked when she was a teenager. She rarely drinks alcohol once or twice a year she may have a glass of wine. She has 3 children who are healthy adult. She has been for 47 years. She works at [employer]. She denies any illicit substance use. Code status: Full code Surrogate decision maker: Smoking status: Never smoker Second hand tobacco smoke exposure: No Alcohol intake: former Substance use: never Substance use type: does not use Lack of Transportation: No Lack of Food: Sometimes True Current Housing: I Have Housing Concerned About Future Housing: No Difficulty Paying Gas/Electric Bills: No Difficulty Paying for Meds: No Currently Unemployed: No Education: High School Diploma/GED Difficulty w/ Childcare or Family Care: No Living arrangements: with family Gender identity (if verbalized by the patient): Female Spiritual care concerns: No Exam 2 Narrative: GENERAL: Well-appearing, well-nourished, and in no acute distress. HEAD: Normocephalic, atraumatic. EYES: EOMI. NECK: Supple. No adenopathy or masses. No JVD CHEST: Clear to auscultation. No respiratory distress. No wheezes rales or rhonchi HEART: Regular rate and rhythm. No murmur heard. Normal peripheral pulses. EXTREMITIES: Normal range of motion. No edema. SKIN: Warm, dry, no rash. NEURO: No focal deficits. Alert and oriented x3. PSYCH: Normal mood and affect Course Course Emergency Course: Patient currently is resting comfortably, has not had recurrence of her pain while in the ER Consultations Consultation #1: Spoke with Dr. Jay about patient and workup. As patient is currently resting comfortably without pain she may follow up outpatient for further evaluation and management Date: 06/24/24 Vital Signs Vital signs: Vital Signs Temperature 98.5 F 06/24/24 09:08 Pulse Rate 79 06/24/24 09:08 Respiratory Rate 15 06/24/24 09:08 Blood Pressure 187/71 H 06/24/24 09:08 Pulse Oximetry 98 06/24/24 09:08 Oxygen Delivery Room Air 06/24/24 09:08 Temperature 98.5 F 06/24/24 09:08 Pulse Rate 61 06/24/24 10:27 Respiratory Rate 18 06/24/24 10:27 Blood Pressure 169/79 H 06/24/24 10:27 Pulse Oximetry 100 06/24/24 10:27 Oxygen Delivery Room Air 06/24/24 10:27 MDM - Chest Pain MDM Narrative Medical decision making narrative: Patient presents to the emergency department for an episode of chest pain today. This had resolved prior to my evaluation. Her vitals are stable. Cbc metabolic panel without concerning findings. EKG without acute ST changes and her baseline and 3 hour troponin are negative. Chest x-ray without acute cardiopulmonary abnormality. Patient updated on her workup. Resting comfortably. No recurrence of pain. Spoke with her senior electrical designer about her workup today. She may follow up outpatient if no further issues arise. She was given warnings to return to the ER Differential Diagnosis Differential diagnosis: Likely stable angina, unstable angina pectoris, costochondritis and other (pneumonia) Lab Data Attestation: I reviewed the patient's lab results. 06/24/24 09:22 06/24/24 09:22 Labs: Lab Results 06/24/24 06/24/24 Range/Units 09:22 13:06 WBC 6.2 (4.5-10.0) K/mm3 RBC 4.16 L (4.2-5.4) M/mm3 Hgb 11.5 L (12.0-15.0) g/dL Hct 35.6 L (37.0-47.0) % MCV 85.6 (80-100) fl MCH 27.6 (26-34) pg MCHC 32.3 (32-36) g/dl RDW 14.6 H (11.5-14.5) % Plt Count 311 (150-375) k/mm3 MPV 9.9 (7.4-10.4) fl Immature Gran % (Auto) 0.2 (0-0.5) % Neut % (Auto) 57.8 (45.5-73.1) % Lymph % (Auto) 26.8 (18.3-44.2) % [place] % (Auto) 10.1 H (2.6-8.5) % Eos % (Auto) 3.5 (0-4.4) % Baso % (Auto) 1.6 H (0.2-1.2) % Lymph # (Auto) 1.67 (0.9-3.2) K/mm3 [place] # (Auto) 0.6 (0.1-0.6) K/mm3 Eos # (Auto) 0.2 (0-0.3) K/mm3 Baso # (Auto) 0.1 (0.0-0.1) K/mm3 Abs Immat Gran (auto) 0.01 (0.00-0.031) K/mm3 Absolute Neuts (auto) 3.6 (1.3-6.7) K/mm3 Absolute Nucleated RBC 0.000 (0.0-0.012) K/mm3 Nucleated RBC % 0.0 (0.0-0.2) % PT 13.1 (11.1-14.7) Seconds INR 1.0 APTT 30.8 (22.3-36.8) Seconds Sodium 138 (137-145) mmol/L Potassium 4.3 (3.4-5.0) mmol/L Chloride 104 (98-107) mmol/L Carbon Dioxide 22 (22-30) mmol/L Anion Gap 12 (4-12) mmol/L BUN 15 (7-17) mg/dL Creatinine 0.62 L (0.7-1.0) mg/dL Estim Creat Clear Calc 59 ml/min Estimated GFR > 60 (59 - ) Glucose 89 (65-110) mg/dL Calcium 9.3 (8.4-10.2) mg/dL Total Bilirubin 0.5 (0.2-1.3) mg/dL AST 31 (14-36) U/L ALT 22 (6-35) U/L Alkaline Phosphatase 97 (38-126) U/L Troponin I < 0.012 < 0.012 (0.000-0.034) ng/mL Total Protein 8.0 (6.3-8.2) g/dL Albumin 4.3 (3.5-5.1) g/dL Lipase 81 (23-300) U/L Imaging Data Radiologist's impression: ITS Impressions Chest X-Ray 06/24/24 10:02 IMPRESSION: 1. No acute cardiopulmonary disease. ECG Data EKG #1: ECG completion date: 06/24/24 EKG Interpretation: normal rate, sinus rhythm, no ST changes and normal QT Critical Care Time Critical Care Time Critical Care Time: No Discharge Plan Discharge Clinical Impression: Chest pain Qualifiers: Chest pain type: unspecified Qualified Code(s): R07.9 - Chest pain, unspecified Patient Disposition: Home, Self-Care Condition: Improved Instructions: Chest Pain (ED) Additional Instructions: Return to the emergency department if you experience fever, chest pain, shortness of breath, abdominal pain with nausea and vomiting, weakness, or any other symptoms that are concerning to you. Take your home medications as prescribed Follow up with your senior electrical designer Patient Language: Libyan Prescriptions: No Action vitamin E (dl, acetate) 45 mg (100 unit) capsule 45 mg PO DAILY vitamin B complex Capsule 1 cap PO DAILY Ultra CoQ10 75 mg capsule 75 mg PO DAILY ferrous sulfate 325 mg (65 mg iron) tablet 325 mg PO .every 3 days glucosamine sulfate [Cidatrine (glucosamine)] 500 mg tablet 500 mg PO DAILY Rx Instructions: administer with a meal aspirin 81 mg tablet,delayed release (DR/EC) 81 mg PO DAILY cholecalciferol (vitamin D3) [Vitamin D3] 50 mcg (2,000 unit) capsule 50 mcg PO DAILY metoprolol succinate 25 mg tablet extended release 24 hr See Rx Instructions .ROUTE .COMPLEX Qty: 90 2RF Dose Instruction: 25 MG ORALLY DAILY Rx Instructions: 25 MG ORALLY DAILY pravastatin 10 mg tablet See Rx Instructions .ROUTE .COMPLEX Qty: 90 2RF Dose Instruction: TAKE 1 TABLET BY MOUTH EVERY DAY Rx Instructions: TAKE 1 TABLET BY MOUTH EVERY DAY Follow-up/Referrals: Marry Keith MD [Primary Care Provider] - Augustine Jay DO [Physician] - Quality HEART score for chest pain patients History: moderately suspicious ECG: normal Age: > or = to 65 years Risk factors: > or = to 3 risk factors of atherosclerotic disease Troponin: < or = to 1x normal limit Heart score: 5
--- OUTSIDE RECORDS SUMMARY | 2024-06-24 11:30 | XMS_ITS | Patient Health Summary ---
Author Organization [facility] [employer] Address [address] [place] [address] Care Team Providers Care Associate Broker Name Role Phone Marry Keith MD Primary Care Provider [phone] [facility],non-owned Affiliates and Associated Physician Practices is amultiple site organization consisting of ambulatory clinics and hospital sitesin [place], [place], [place] and [place]. This disclosure is being madepursuant to the Care Everywhere program and may not contain all information available regarding this patient. Last updated 18.[facility] Allergies No known active allergies Medications * [...] Comments Blood Pressure 136/80 04/23/2019 5:02 PM SPACECRAFT SYSTEMS ENGINEER Pulse 86 04/23/2019 5:02 PM SPACECRAFT SYSTEMS ENGINEER Temperature 36.9 C (98.4 F) 04/23/2019 5:02 PM SPACECRAFT SYSTEMS ENGINEER Respiratory Rate - - Oxygen Saturation 99% 04/23/2019 5:02 PM SPACECRAFT SYSTEMS ENGINEER Inhaled Oxygen Concentration - - Weight 70.3 kg (155 lb) 04/23/2019 5:02 PM SPACECRAFT SYSTEMS ENGINEER Height 162.6 cm (5' 4 ) 04/23/2019 5:02 PM SPACECRAFT SYSTEMS ENGINEER Body Mass Index 26.61 04/23/2019 5:02 PM SPACECRAFT SYSTEMS ENGINEER Procedures * STREP A SCREEN - POINT OF CARE (AMB) STL(Performed 04/23/2019) Performed for Acute URI * INFLUENZA A+B - POINT OF CARE (AMB)(Performed 04/23/2019) Performed for Acute URI Results * STREP A SCREEN - POINT OF CARE (AMB) STL (04/23/2019) Strep A Rapid POCT Negative Negative Strep A Internal Control Present Lot # [id number] Expiration Date 08/12/2020 Throat ENTIRE THROAT (SURFACE REGION OF NECK) / Unknown 04/23/2019 Valeria Yu APRN-SUPERVISOR FISH BAIT PROCESSING LAB - POINT OF CARE ORDERABLES * INFLUENZA A+B - POINT OF CARE (AMB) (04/23/2019) Influenza A Antigen Rapid Negative Negative Influenza B Antigen Rapid Negative Negative Influenza Internal Control present NEGATIVE - POSITIVE Influenza Lot Number [id number] Influenza Expiration Date 08/22/2020 Other NASOPHARYNGEAL SWAB / Unknown 04/23/2019 Valeria Yu APRN-SUPERVISOR FISH BAIT PROCESSING LAB - POINT OF CARE ORDERABLES Care Teams Associate Broker Relationship Specialty Start Date End Date Marry Keith MD [address] [place] [address] PCP - General Family Medicine 02/27/17
--- OUTSIDE RECORDS SUMMARY | 2024-06-24 11:30 | XMS_ITS | Referral Summary ---
Author Organization [facility] [address] Address [address] [place] [address] Care Team Providers Care Offset Printing Operator Name Role Phone Marry Keith MD Primary Care Provider [phone] Augustine Jay DO Unavailable [phone] Singh Monzon MD Unavailable [phone] Allergies No known active allergies Medications metoprolol [...] disease) 05/01/2023 Coronary artery disease invo lving [place] coronary artery of [place] heart with unstable angina pectoris 04/26/2023 Immunizations [...] Comments Blood Pressure 116/53 05/03/2023 12:49 PM ACTIVE DIRECTORY SYSTEMS ADMINISTRATOR Pulse 74 05/03/2023 12:49 PM ACTIVE DIRECTORY SYSTEMS ADMINISTRATOR Temperature 36.5 C (97.7 F) 05/03/2023 12:49 PM ACTIVE DIRECTORY SYSTEMS ADMINISTRATOR Respiratory Rate 15 05/03/2023 12:49 PM ACTIVE DIRECTORY SYSTEMS ADMINISTRATOR Oxygen Saturation 99% 05/03/2023 12:49 PM ACTIVE DIRECTORY SYSTEMS ADMINISTRATOR Inhaled Oxygen Concentration - - Weight 63.1 kg (139 lb 1.8 oz) 05/02/2023 6:30 P M ACTIVE DIRECTORY SYSTEMS ADMINISTRATOR Height 160 cm (5' 3 ) 05/02/2023 6:30 PM ACTIVE DIRECTORY SYSTEMS ADMINISTRATOR Body Mass Index 24.64 05/02/2023 6:30 PM ACTIVE DIRECTORY SYSTEMS ADMINISTRATOR Plan of Treatment Not on file Medical Devices Implanted Type Area Clinical Laboratory Science Professor Device Identifier Shelf Expiration Date Model / Serial / Lot [employer] Stent Coronary Drug Eluting Rapid Exchange Synergy Megatron 3.70k01iy [place] Chromium [id number] - S0 - [id number] Implanted:Qty : 1 on 05/01/2023 by Shawn Culp MD at [facility] Stent Left: Anterior Descending Cornary Artery [employer] 11/13/2024 [id number] / 0 / [id number] [employer] Stent Drug Eluting S Megatron Us Mr 4.93r56pi [id number] - S0 - [id number] Implanted:Qty : 1 on 05/01/2023 by Shawn Culp MD at [facility] Stent Left: Circumflex Coronary Artery [employer]in 11/21/2024 [id number] / 0 / [id number] [employer] Alin Angio-Seal Vip 6fr Closere Device [id number] - S0 - [id number] Implanted:Qty : 1 on 05/01/2023 by Shawn Culp MD at [facility] Vascular Closure Device Right: Femoral [employer]in 10/20/2023 [id number] / 0 / [id number] 40 Insurance [facility] CHOICE PLUS [facility] CHOICE PLUS MEDICARE [facility] CHOICE PLUS Advance Directives For more information, please contact: [phone] * Full Code (Latest Code Status on File) Date Activated Date Inactivated Comments 05/01/2023 12:35 PM 05/03/2023 8:15 PM Care Teams Offset Printing Operator Relationship Specialty Start Date End Date Marry Keith MD PCP - General Family Medicine 08/05/22 Augustine Jay DO [address] [address] Referring Physician Internal Medicine 04/12/23 Singh Monzon MD [address] [address] Consulting Physician Cardiothoracic Surgery 04/12/23
--- OUTSIDE RECORDS SUMMARY | 2024-06-24 11:30 | XMS_ITS | Referral Summary ---
Author Organization [facility] [employer] Address [address] [place] [address] Care Team Providers Care Job Training Specialist Name Role Phone Marry Keith MD Primary Care Provider Source Comments [facility] [employer],non-[facility] Affiliates and Associated Physician Practices is amultiple site organization consisting of ambulatory clinics and hospital sitesin [place], [place], [place] and [place]. This disclosure is being madepursuant to the Care Everywhere program and may not contain all information available regarding this patient. Last updated 18.[facility] [employer] Allergies No known active allergies Medications * [...] Comments Blood Pressure 136/80 04/23/2019 5:02 PM BUILDING SURVEYOR Pulse 86 04/23/2019 5:02 PM BUILDING SURVEYOR Temperature 36.9 C (98.4 F) 04/23/2019 5:02 PM BUILDING SURVEYOR Respiratory Rate - - Oxygen Saturation 99% 04/23/2019 5:02 PM BUILDING SURVEYOR Inhaled Oxygen Concentration - - Weight 70.3 kg (155 lb) 04/23/2019 5:02 PM BUILDING SURVEYOR Height 162.6 cm (5' 4 ) 04/23/2019 5:02 PM BUILDING SURVEYOR Body Mass Index 26.61 04/23/2019 5:02 PM BUILDING SURVEYOR Plan of Treatment Not on file Care Teams Job Training Specialist Relationship Specialty Start Date End Date Marry Keith MD [address] [place] [address] PCP - General Family Medicine 02/27/17
--- OUTSIDE RECORDS SUMMARY | 2024-06-24 11:30 | XMS_ITS | Clinical Summary ---
Author Organization [facility] [address] Address [address] [place] [address] Care Team Providers Care Fundraiser Name Role Phone Marry Keith MD Primary Care Provider [phone] Pierre Augustineshadi Canseco DO Unavailable [phone] Singh Monzon MD Unavailable [phone] Allergies No known active allergies Medications metoprolol [...] disease) 05/01/2023 Coronary artery disease invo lving [place] coronary artery of [place] heart with unstable angina pectoris 04/26/2023 Immunizations [...] Comments Blood Pressure 116/53 05/03/2023 12:49 PM HIGH MAN Pulse 74 05/03/2023 12:49 PM HIGH MAN Temperature 36.5 C (97.7 F) 05/03/2023 12:49 PM HIGH MAN Respiratory Rate 15 05/03/2023 12:49 PM HIGH MAN Oxygen Saturation 99% 05/03/2023 12:49 PM HIGH MAN Inhaled Oxygen Concentration - - Weight 63.1 kg (139 lb 1.8 oz) 05/02/2023 6:30 P M HIGH MAN Height 160 cm (5' 3 ) 05/02/2023 6:30 PM HIGH MAN Body Mass Index 24.64 05/02/2023 6:30 PM HIGH MAN Plan of Treatment Health Maintenance Due Date [...] 06/01/2020, 03/30/2020 Medical Devices Implanted Type Area Load Tallier Device Identifier Shelf Expiration Date Model / Serial / Lot [employer] Alin Stent Coronary Drug Eluting Rapid Exchange Synergy Megatron 3.34j27rh Lummi Chromium [id number] 0 - S0 - [id number] Implanted:Qty : 1 on 05/01/2023 by Shawn Culp MD at [facility] Stent Left: Anterior Descending Cornary Artery [employer] Alin 11/13/2024 [id number] / 0 / [id number] [employer] Alin Stent Drug Eluting S Dayday Us Mr 4.23p10yt [id number] - S0 - [id number] Implanted:Qty : 1 on 05/01/2023 by Shawn Culp MD at [facility] Stent Left: Circumflex Coronary Artery [employer]in 11/21/2024 [id number] / 0 / [id number] [employer] Alin Angio-Seal Vip 6fr Closere Device [id number] - S0 - [id number] Implanted:Qty : 1 on 05/01/2023 by Shawn Culp MD at [facility] Vascular Closure Device Right: Femoral [employer] Alin 10/20/2023 [id number] / 0 / [id number] 40 Insurance [facility]ICE [facility] HMO/PPO Address: [place] [address] [facility] CHOICE PLUS [facility] H[facility]/PPO Address: [address] [address] [place] [address] [place] [address] [facility] CHOICE PLUS [facility] H[facility]/PPO Address: [address] [address] [place] [address] Advance Directives For more information, please contact: [phone] * Full Code (Latest Code Status on File) Date Activated Date Inactivated Comments 05/01/2023 12:35 PM 05/03/2023 8:15 PM Care Teams Fundraiser Relationship Specialty Start Date End Date Marry Keith MD PCP - General Family Medicine 08/05/22 Augustine Jay DO [address] [address] Referring Physician Internal Medicine 04/12/23 Singh Monzon MD [address] [address] Consulting Physician Cardiothoracic Surgery 04/12/23
--- OUTSIDE RECORDS SUMMARY | 2024-06-24 11:30 | XMS_ITS | Clinical Summary ---
Author Organization [facility] [employer] Address [address] [place] [address] Care Team Providers Care Net Web Application Developer Name Role Phone Marry Keith MD Primary Care Provider [phone] Source Comments [facility] [employer],non-[facility] Affiliates and Associated Physician Practices is amultiple site organization consisting of ambulatory clinics and hospital sitesin [place]. This disclosure is being madepursuant to the Care Everywhere program and may not contain all information available regarding this patient. Last updated 18.[facility] [employer] Allergies No known active allergies Medications * [...] Comments Blood Pressure 136/80 04/23/2019 5:02 PM SALVAGE MEND WORKER Pulse 86 04/23/2019 5:02 PM SALVAGE MEND WORKER Temperature 36.9 C (98.4 F) 04/23/2019 5:02 PM SALVAGE MEND WORKER Respiratory Rate - - Oxygen Saturation 99% 04/23/2019 5:02 PM SALVAGE MEND WORKER Inhaled Oxygen Concentration - - Weight 70.3 kg (155 lb) 04/23/2019 5:02 PM SALVAGE MEND WORKER Height 162.6 cm (5' 4 ) 04/23/2019 5:02 PM SALVAGE MEND WORKER Body Mass Index 26.61 04/23/2019 5:02 PM SALVAGE MEND WORKER Plan of Treatment Health Maintenance Due [...] age to complete this topic Care Teams Net Web Application Developer Relationship Specialty Start Date End Date Marry Keith MD [address] [place], [place] [id number] PCP - General Family Medicine 02/27/17
--- NOTE | 2024-06-24 13:07 | ECG_ITS ---
Test Date: 2024-06-24 13:47:35 Measurements Intervals [place] Rate: 59 P: 53 VA: 140 QRS: -3 QRSD: 88 T: 38 QT: 420 QTc: 417 Interpretive Statements SINUS BRADYCARDIA BASELINE ARTIFACT- I, III BORDERLINE ECG Electronically Signed On 06-24-2024 13:49:03 MEAT STRINGER by Augustine Jay D.O.
[2024-06-24 13:44] LABS: Troponin I < 0.012 ng/mL (0.000-0.034)
== END 2024-06-24 14:48 | disposition home or self-care (01) ==
PROVIDERS: Emergency Medicine; Emergency Provider Physician Assistant; PCP Family Medicine
DX: R07.9 Chest pain, unspecified (principal); I10 Essential (primary) hypertension; E78.5 Hyperlipidemia, unspecified; M85.80 Other specified disorders of bone density and structure, unspecified site
CPT/HCPCS: 36415; 71046; 80053; 83690; 84484; 85025; 85610; 85730; 93005; 99284; A9270

== ENCOUNTER 2025-02-17 12:25 | Outpatient (CLI) | payer MEDICARE, SELFPAY ==
--- NOTE | ~2025-02-17 | DEXA_ITS ---
Bone Density Report Name: MILENA JAIMES Age: 69 Sex: Female Ethnicity: White Date of : 1955 Indication: osteopenia; height loss; Referring Provider: BARTOLO ROBERTO Study: Bone densitometry was performed. Exam Date: February 17, 2025 Accession number: [id number] Bone Density: Region BMD T-score Z-score Classification AP Spine(L1-L4) 0.875 -1.6 0.6 Osteopenia Femoral Neck (Left) 0.678 -1.5 0.4 Osteopenia Total Hip (Left) 0.850 -0.8 0.8 Normal Femoral Neck (Right) 0.741 -1.0 0.9 Normal Total Hip (Right) 0.862 -0.7 0.9 Normal Total Hip Mean 0.856 -0.8 0.9 Normal World Health Organization criteria for BMD impression classify patients as: Normal (T-score at or above -1.0), Osteopenia (T-score between -1.0 and -2.5), or Osteoporosis (T-score at or below -2.5). 10-year Fracture Risk(1): Major Osteoporotic Fracture 10% Hip Fracture 1.7% Reported Risk Factors: [place] (), Neck BMD=0.678, BMI=26.4 (1) FRAX(R) Version 3.08. Fracture probability calculated for an untreated patient. Fracture probability may be lower if the patient has received treatment. Previous Exams: Region Exam Age BMD T-score BMD Change BMD Change Date g/cm2 vs Baseline vs Previous AP Spine (L1-L4) 02/17/2025 69 0.875 -1.6 -0.028 (-3.1%) -0.028 (-3.1%) 10/27/2016 61 0.903 -1.3 Total Hip(Left) 02/17/2025 69 0.850 -0.8 -0.071 (-7.7%) -0.071 (-7.7%) 10/27/2016 61 0.922 -0.2 Total Hip(Right) 02/17/2025 69 0.862 -0.7 -0.048 (-5.3%) -0.048 (-5.3%) 10/27/2016 61 0.910 -0.3 *Denotes significance at 95% confidence level, LSC for AP Spine = 0.022 g/cm2, LSC for Total Hip = 0.027 g/cm2 # Denotes dissimilar scan types or analysis methods Clinical Information Provided by Patient: Has used the following medications: Vitamin D Patient maximum height was 64.0 Menopause Age: 53 Drinks caffeinated beverages Onset of menses at age 9 Number of children 3 Impression: The patient has low bone mass, based on the Total Spine T-score. The patient has an estimated ten-year risk of hip fracture of 1.7% and an estimated ten-year risk of major fracture of 10%, based on the WHO FRAX algorithm. No significant bone loss was observed. Discussion: BONE DENSITY IS LOW AT ONE OR MORE SKELETAL SITES. This patient's lowest T-score is low at one or more skeletal sites. It meets the World Health Organization's (WHO) criteria for ?low bone mass? (T-score between -1.0 and -2.5). The patient's 10-year risk of fracture as calculated by FRAX is less than the threshold where pharmacological therapy is recommended by the National Osteoporosis Foundation (NOF). However, all treatment decisions require clinical judgment and consideration of individual patient factors, including patient preferences, comorbidities, previous drug use, risk factors not captured in the FRAX model (e.g., frailty, falls, vitamin D deficiency, increased bone turnover, interval significant decline in bone density) and possible under or overestimation of fracture risk by FRAX. The patient should follow a healthful lifestyle (good nutrition with adequate calcium and vitamin D, and appropriate weight-bearing exercise). Follow-Up: Consider repeating this study in 2 to 3 years to reassess this patient's status, or sooner if there is some new clinical indication. Reported by: JENNYFER on 02/17/2025 1:08:00 PM. Reviewed, dictated and finalized at location A.
--- OUTSIDE RECORDS SUMMARY | 2025-02-17 13:24 | XMS_ITS | Clinical Summary ---
Author Organization [facility] [employer] Address [address] [place] [address] Care Team Providers Care Saw Repairer Name Role Phone Marry Keith MD Primary Care Provider [phone] Source Comments [facility] [employer] [place],non-owned Affiliates and Associated Physician Practices is amultiple site organization consisting of ambulatory clinics and hospital sitesin [place], [place], [place] and [place]. This disclosure is being madepursuant to the Care Everywhere program and may not contain all information available regarding this patient. Last updated 18.[facility] [employer] Allergies No known active allergies Medications * Be aware that medications may not be up to date on this document. Alwaysverify current medications with the patient. METOPROLOL SUCCINATE PO Active albuterol HFA (PROVENTIL;ADE KALIA;PROAIR) 108 (90 Base) MCG/ACT inhaler Inhale 2 puffs by mouth every 4 hours as needed 1 Inhaler 04/23/2019 Active Active Problems No known active problems Immunizations Immunization Administration Dates Next Due INFLUENZA VACCINE, HIGH-DOSE , QUADR. (FLUZONE HIGH-DOSE QUADRIVALENT; 65Y+), 0.7 ML (HD-IIV4) 03/24/2021 INFLUENZA VACCINE, QUADR. (F LUZONE; FLULAVAL; FLUARIX; AFLURIA QUADRIVALENT; 6MO+), 0.5 ML (IIV4) 02/28/2019,02/27/2017 iNFLUENZA VACCINE, RECOM-BENJAMIN, QUADR. (FLUBLOCK QUADRIVALENT; 18Y+) (RIV4) 02/14/2018 Social History Tobacco Use Types Packs/Day Years Used Date Smoking Tobacco: Former Smokeless Tobacco: Never Comments No Sex and Gender Information Value Date Recorded Sex Assigned at Not on file Legal Sex Female 3:15 PM CDT Gender Identity Not on file Sexual Orientation Not on file Last Filed Vital Signs Vital Sign Reading Time Taken Comments Blood Pressure 136/80 04/23/2019 5:02 PM VISUAL MERCHANDISING ASSOCIATE Pulse 86 04/23/2019 5:02 PM VISUAL MERCHANDISING ASSOCIATE Temperature 36.9 C (98.4 F) 04/23/2019 5:02 PM VISUAL MERCHANDISING ASSOCIATE Respiratory Rate - - Oxygen Saturation 99% 04/23/2019 5:02 PM VISUAL MERCHANDISING ASSOCIATE Inhaled Oxygen Concentration - - Weight 70.3 kg (155 lb) 04/23/2019 5:02 PM VISUAL MERCHANDISING ASSOCIATE Height 162.6 cm (5' 4) 04/23/2019 5:02 PM VISUAL MERCHANDISING ASSOCIATE Body Mass Index 26.61 04/23/2019 5:02 PM VISUAL MERCHANDISING ASSOCIATE Plan of Treatment Health Maintenance Due Date [...] 2003 ZOSTER VACCINE (1 of 2) 2003 DEPRESSION SCREENING 05/15/2024 COVID-19 VACCINE (3 - 2024- season) 2025 07/30/2020, 07/09/2020 INFLUENZA VACCINE (#1) 2025 , 03/30/2020, 02/28/2019, Additional history exists Respiratory Syncytial Virus (RSV) Vaccine Pt: or [...] complete this topic MENINGOCOCCAL (Group B) VACCINE SHARED DECISION-MAKING Aged Out No longer eligible based on patient's age to complete this topic MENINGOCOCCAL GROUPS A/C/Y/W VACCINE Aged Out No longer eligible based on patient's age to complete this topic Insurance Care Teams Saw Repairer Relationship Specialty Start Date End Date Marry Keith MD [address] [place], [place] [id number] PCP - General Family Medicine 02/27/17
--- OUTSIDE RECORDS SUMMARY | 2025-02-17 13:24 | XMS_ITS | Clinical Summary ---
Author Organization [facility] [address] Address [address] [place] [address] Care Team Providers Care Aircraft Mechanic Armament Name Role Phone Marry Keith MD Primary Care Provider [phone] Augustine Jay DO Unavailable [phone] Singh Monzon MD Unavailable [phone] Allergies No known active allergies Medications metoprolol [...] disease) 05/01/2023 Coronary artery disease invo lving [place] coronary artery of [place] heart with unstable angina pectoris 04/26/2023 Immunizations Immunization Administration Dates Next Due Influenza, Quadrivalent, Hig [...] Comments Blood Pressure 116/53 05/03/2023 12:49 PM CUSTOM FEED MILL OPERATOR HELPER Pulse 74 05/03/2023 12:49 PM CUSTOM FEED MILL OPERATOR HELPER Temperature 36.5 C (97.7 F) 05/03/2023 12:49 PM CUSTOM FEED MILL OPERATOR HELPER Respiratory Rate 15 05/03/2023 12:49 PM CUSTOM FEED MILL OPERATOR HELPER Oxygen Saturation 99% 05/03/2023 12:49 PM CUSTOM FEED MILL OPERATOR HELPER Inhaled Oxygen Concentration - - Weight 63.1 kg (139 lb 1.8 oz) 05/02/2023 6:30 P M CUSTOM FEED MILL OPERATOR HELPER Height 160 cm (5' 3) 05/02/2023 6:30 PM CUSTOM FEED MILL OPERATOR HELPER Body Mass Index 24.64 05/02/2023 6:30 PM CUSTOM FEED MILL OPERATOR HELPER Plan of Treatment Health Maintenance Due Date Last Done Comments Breast Cancer Screening-Mammogram 1955 Colon Cancer Screening-Colonoscopy 1955 Depression Screening 1955 Hepatitis C Screening 1955 Osteoporosis Screening-Bone Density Scan 1955 Hepatitis B Screening 1971 Well Visit 65+ 2018 Pneumococcal vaccine 65+ (2 of 2 - PCV20 or PCV21) 10/30/2020 10/31/2019 Fall Risk Assessment 05/03/2024 05/03/2023 Covid-19 Vaccine (6 - 2024-2 6 season) 2025 02/08/2022, 09/16/2021, 03/26/2021, Additional history exists Influenza Vaccine (#1) 2025 , 02/08/2022, 03/24/2021, Additional history exists DTaP/Tdap/Td Vaccine (2 - Td or Tdap) 07/28/2032 07/28/2022 Zoster Vaccine Completed 06/01/2020, 03/30/2020 Medical Devices Implanted Type Area Supervisor Dog License Officer Device Identifier Shelf Expiration Date Model / Serial / Lot [employer] Alin Stent Coronary Drug Eluting Rapid Exchange Synergy Megatron 3.02i18aa Orestes Chromium [id number] - S0 - [id number] Implanted:Qty : 1 on 05/01/2023 by Shawn Culp MD at [facility] Stent Left: Anterior Descending Cornary Artery [employer] Alin 11/13/2024 [id number] / 0 / [id number] [employer] Alin Stent Drug Eluting S Dayday Garcia Mr 4.70h12je [id number] - S0 - [id number] Implanted:Qty : 1 on 05/01/2023 by Shawn Culp MD at [facility] Stent Left: Circumflex Coronary Artery [employer] Alin 11/21/2024 [id number] / 0 / [id number] [employer] Alin Angio-Seal Vip 6fr Closere Device [id number] - S0 - [id number] Implanted:Qty : 1 on 05/01/2023 by Shawn Culp MD at [facility] Vascular Closure Device Right: Femoral [employer] Alin 10/20/2023 [id number] / 0 / [id number] Insurance [facility] CHO[facility] PLUS [facility] CHOICE [place] [address] [facility] CHOICE PLUS Advance Directives For more information, please contact: [phone] * Full Code (Latest Code Status on File) Date Activated Date Inactivated Comments 05/01/2023 12:35 PM 05/03/2023 8:15 PM Care Teams Aircraft Mechanic Armament Relationship Specialty Start Date End Date Marry Keith MD PCP - General Family Medicine 08/05/22 Augustine Jay DO [address] [address] Referring Physician Internal Medicine 04/12/23 Singh Monzon MD [address] [address] Consulting Physician Cardiothoracic Surgery 04/12/23
== END 2025-02-17 12:26 | disposition home or self-care (01) ==
LOC: ANHFOHIMG 12:27
PROVIDERS: PCP Family Medicine; Visit Provider Family Medicine
DX: M85.852 Other specified disorders of bone density and structure, left thigh (principal); Z78.0 Asymptomatic menopausal state
CPT/HCPCS: 77080